=== PATIENT | male | born 1945 | race Caucasian/White ===

== ENCOUNTER → 2017-09-19 | Day surgery (SDC) | payer MEDICARE, OTHER ==
[~2017-09-19] MED LIST: DEXAMETHASONE SOD PHOS 4 MG/ML VIAL ONE; EPINEPHrine HCL (1:1000) 1 MG/ML VIAL ONE; LACTATED RINGER'S 1000 ML INJ 1,000 ML ONE; MIDAZOLAM HCL 2 MG/2 ML VIAL ONE; MOXIFLOXACIN 0.5% OPHT SOLN 3 ML BTL ONE; ONDANSETRON HCL 4 MG/2 ML VIAL IV PUSH ONE; PHENYLEPHRINE HCL 10% OPTH SOLN 5 ML BTL ONE; PROPOFOL 200 MG/20 ML AMP IV ONE; SODIUM CHLORIDE 0.9% INJ 10 ML ONE; TETRACAINE 0.5% OPTH SOLN 4 ML BTL ONE; TOBRAMYCIN/DEXAMETHASONE OPTH OINT 3.5 GM TUBE ONE; ceFAZolin INJ 1,000 MG VIAL ONE; prednisoLONE ACETATE 1% OPHT SUSP 5 ML BTL ONE
--- NOTE | 2017-09-25 10:25 | MP ---
cc: Matt Mcgill MD DATE OF OPERATION: 09/19/2017 POSTOPERATIVE DIAGNOSIS: Retinal detachment, retinal tear, vitreous hemorrhage, left eye. PROCEDURE PERFORMED: Pars plana vitrectomy, endolaser, left eye. COMPLICATIONS: None. ESTIMATED BLOOD LOSS: Less than 1 mL. ANESTHESIA: Dr. Charles, general. INDICATIONS FOR PROCEDURE: This is a delightful patient who presented with vitreous hemorrhage and retinal tear and localized detachment. The retinal tear was treated with endolaser in the clinic and the patient elected to undergo surgical correction to remove the vitreous hemorrhage and treat any additional tears and detachments. DESCRIPTION OF PROCEDURE: After informed consent was obtained, the patient was brought to the operating room. General anesthesia was established. The left eye was prepped and draped in sterile fashion. Betadine in the conjunctival fornix. A 3-port pars vitrectomy was established with a self-retaining infusion cannula. The core vitreous was evacuated along with vitreous hemorrhage and peripheral vitreous traction. Scleral depression examination revealed the infratemporal tear which was previously treated with endolaser. Endolaser was applied around this area of prior treatment. Additional endolaser was applied supranasal and supratemporal in the areas of retinal thinning. No additional retinal tears, holes or detachments were seen. Trocars were removed and sclerotomies closed with 7-0 Vicryl suture. The conjunctiva was reapproximated with 6-0 plain gut. Subconjunctival injection of Ancef and dexamethasone were given. The eye was patched with tobramycin ointment. The patient was brought to recovery room in stable condition. Continue to followup with [facility] his postoperative care. MD ERASTO Reid/MORGAN , 09:35 PM , 11:45 PM
== END | disposition home or self-care (01) ==
LOC: ESDC 07:15
PROVIDERS: ATTEND Ophthalmology
DX: H33.002 Unspecified retinal detachment with retinal break, left eye (principal); H43.12 Vitreous hemorrhage, left eye
CPT/HCPCS: 00145; 67040; J0171; J0690; J1100; J2250; J2405; J3010; J7120